=== PATIENT | female | born 1965 | race Caucasian/White ===

== ENCOUNTER 2021-07-09 17:01 | Emergency (ER) | payer BC ==
[~2021-07-09] VITALS: Ht 162.6 cm; Wt 97.5 kg
[2021-07-09 17:20] VITALS: BP_SYST 128
[2021-07-09] MEDS ORDERED: DIPH-TET-PERTUS Vaccine 0.5 ML VIAL (ADACEL) I.M. ONE (17:45)
[2021-07-09 17:55] VITALS: BP_SYST 128
== END 2021-07-09 17:55 | disposition home or self-care (01) ==
LOC: SED 17:23
DX: S61.210A Laceration without foreign body of right index finger without damage to nail, initial encounter (principal); I10 Essential (primary) hypertension; W45.8XXA Other foreign body or object entering through skin, initial encounter; Y93.89 Activity, other specified; Y92.89 Other specified places as the place of occurrence of the external cause; Y99.8 Other external cause status
CPT/HCPCS: 90715; 99283